=== PATIENT | male | born 1990 | race Caucasian/White ===

== ENCOUNTER 2016-09-30 13:15 | Emergency (ER) | payer MEDICAID ==
--- NOTE | 2016-09-30 13:28 | Emergency Department Record ---
History of Present Illness - General Chief Complaint: Back Pain/Injury Stated Complaint: LOWER BACK PAIN Time Seen by Provider: 09/30/16 13:27 Source: Patient Mode of Arrival: Ambulatory Limitations: No limitations - History of Present Illness Initial Comments: The patient is here due to worsening back pain since falling 9 days ago. He states he fell off a wall and had multiple lumbar spine fx's and was admitted to [facility] [place] for a week. He was discharged yesterday on [place] and a back brace but now he states he is not able to take the [place] due to it making him nauseated. He denies any new pain or discomfort but states his pain is worse due to the inability to take the [place]. He denies any AP, leg numbness, weakness, tingling or any bowel or bladder issues. MD Complaint: Back pain Onset/Timin -: Days(s) Place: Other Radiation: None Severity: Severe Severity scale (1-10): 10 Quality: Sharp Consistency: Constant Improves With: None Worsens With: None Context: Fall Associated Symptoms: Denies other symptoms Treatments Prior to Arrival: Other - Related Data Home Medications Medication Instructions Recorded Confirmed Last Taken Citalopram Hydrobromide [Celexa] 20 mg PO DAILY 09/30/16 09/30/16 Unknown Clonidine [Catapres-Tts 1] 1 each TD WEEKLY 09/30/16 09/30/16 Unknown Gabapentin [Neurontin] 800 mg PO DAILY 09/30/16 09/30/16 Unknown Previous Rx's Medication Instructions Recorded Hydrocodone/Acetaminophen [Park[place] 1 - 2 each PO .EVERY 4-6 HRS PRN 02/15/16 5-325 Tablet] #20 tablet Naproxen [Naprosyn] 500 mg PO BID #14 tablet. 09/30/16 Allergies Allergy/AdvReac Type Severity Reaction Status Date / Time No Known Drug Allergies Allergy Verified 03/12/16 18:02 Travel Screening - Travel/Exposure Within Last 30 Days Have you traveled within the last 30 days?: No Review of Systems Constitutional: Denies: Chills, Fever Past Medical History - SOCIAL HISTORY Smoking Status: Current every day smoker Alcohol Use: None Drug Use: None - RESPIRATORY Hx Respiratory Disorders: No - CARDIOVASCULAR Hx Cardio Disorders: No - NEURO Hx Neuro Disorders: No - GI Hx GI Disorders: No - Hx Genitourinary Disorders: No - ENDOCRINE Hx Endocrine Disorders: No - MUSCULOSKELETAL Hx Musculoskeletal Disorders: No - PSYCH Hx Psych Problems: No - HEMATOLOGY/ONCOLOGY Hx Hematology/Oncology Disorders: No Family Medical History Any Significant Family History?: No Family Hx Comment (NOT TO BE USED IN PLACE OF ITEMS BELOW): unknown Physical Exam - General General Appearance: Alert, Oriented x3, Cooperative, No acute distress - Head Head exam: Atraumatic, Normocephalic, Normal inspection - Eye Eye exam: Normal appearance, PERRL - Neck Neck exam: Normal inspection, Full ROM. negative: Tenderness - Respiratory Respiratory exam: Normal lung sounds bilaterally. negative: Respiratory distress - Cardiovascular Cardiovascular Exam: Regular rate, Normal rhythm, Normal heart sounds - Extremities Extremities exam: Normal inspection, Full ROM, Normal capillary refill. negative: Pedal edema, Tenderness - Back Back exam: Reports: Other (The spine exam is difficult to perform due to the patient's TLSO brace which is in place.) - Neurological Neurological exam: Alert, Normal gait, Oriented X3, Reflexes normal. negative: Abnormal gait, Altered, Motor sensory deficit Course Vital Signs 09/30/16 13:20 Temperature 98.2 F Pulse Rate 96 H Respiratory 20 Rate Blood Pressure 147/104 Pulse Ox 97 - Reevaluation(s) Reevaluation #1: The patient is doing very well at this time. He is ambulating normally with no leg numbness, weakness or new issues. I did explain the lab results to him and the need for F/U. 09/30/16 14:20 09/30/16 14:21 Disposition Disposition: Discharge Clinical Impression: Lumbar transverse process fracture Qualifiers: Encounter type: initial encounter Fracture type: closed Qualified Code(s): S32.009A - Unspecified fracture of unspecified lumbar vertebra, initial encounter for closed fracture Disposition: Home, Self-Care Condition: (1) Good Instructions: Thoracolumbar Fracture (ED) Additional Instructions: Please stop your Motrin and start the Naprosyn. Please see your PCP for any problems or new issues. Prescriptions: Naproxen [Naprosyn] 500 mg PO BID #14 tablet.dr Forms: Patient Portal Access Time of Disposition: 14:23 Quality - Quality Measures Quality Measures: N/A - Blood Pressure Screening View Details: Yes Blood Pressure Classification: Hypertensive Reading Systolic Measurement: 147 Diastolic Measurement: 104 Screening for High Blood Pressure: < Pre-Hypertensive BP, F/U Documented > [ [id number]] Pre-Hypertensive Follow-up Interventions: Follow-up with rescreen every year.
[2016-09-30] MEDS ORDERED: KETOROLAC 30 MG/ML VIAL IM ONE (13:33)
[2016-09-30] MEDS ORDERED: ONDANSETRON 4 MG ODT TABLET SL ONE (13:33)
[2016-09-30] MEDS ORDERED: LORAZEPAM 0.5 MG TABLET PO ONE (13:34)
[2016-09-30 13:54] LABS: URINE APPEARANCE CLEAR; URINE BILIRUBIN NEGATIVE (NEGATIVE); URINE BLOOD NEGATIVE (NEGATIVE); URINE COLOR YELLOW; URINE GLUCOSE (UA) NEGATIVE (NEGATIVE); URINE KETONE NEGATIVE (NEGATIVE); URINE LEUKOCYTE ESTERASE NEGATIVE (NEGATIVE); URINE NITRITE NEGATIVE (NEGATIVE); URINE PROTEIN NEGATIVE (NEGATIVE); URINE UROBILINOGEN 0.2 E.U./dL (0.20 - 1.00)
[2016-09-30 13:59] LABS: AMPHETAMINE SCREEN URINE NOT DETECTED; BARBITURATE SCREEN URINE DETECTED; BENZODIAZEPINE SCREEN URINE DETECTED; COCAINE SCREEN URINE NOT DETECTED; METHADONE SCREEN URINE NOT DETECTED; METHAMPHETAMINE SCREEN NOT DETECTED; OPIATE SCREEN URINE NOT DETECTED; OXYCODONE SCREEN URINE NOT DETECTED; PHENCYCLIDINE SCREEN URINE NOT DETECTED; PROPOXYPHENE SCREEN URINE NOT DETECTED; THC SCREEN URINE NOT DETECTED; TRICYCLIC ANTIDEPRESSANT SCRN NOT DETECTED
== END 2016-09-30 14:36 | disposition home or self-care (01) ==
LOC: ER 13:15
DX: S32.018A Other fracture of first lumbar vertebra, initial encounter for closed fracture (principal); S32.028A Other fracture of second lumbar vertebra, initial encounter for closed fracture; S32.038A Other fracture of third lumbar vertebra, initial encounter for closed fracture; S32.048A Other fracture of fourth lumbar vertebra, initial encounter for closed fracture; R11.0 Nausea; W13.1XXA Fall from, out of or through bridge, initial encounter
CPT/HCPCS: 99283 ×2; 96372; 81003; 80305; J1885